=== PATIENT | female | born 1950 | race Caucasian/White ===

== ENCOUNTER → 2018-06-05 | Outpatient (CLI) | payer OTHER ==
[~2018-06-05] MED LIST: IOPAMIDOL (ISOVUE 370) 75 ML BTL IV ONE
== END ==
LOC: FIMAGING 11:43
PROVIDERS: ATTEND Family Medicine
DX: J34.9 Unspecified disorder of nose and nasal sinuses (principal); R60.9 Edema, unspecified
CPT/HCPCS: 70487; Q9967; 82565-PO

== ENCOUNTER 2018-06-06 12:43 | Emergency (ER) | payer OTHER ==
--- NOTE | 2018-06-06 13:14 | EDPHY ---
H & P Time Seen by Provider: 06/06/18 12:53 HPI/ROS: CHIEF COMPLAINT: Multiple complaints, word-finding difficulties HISTORY OF PRESENT ILLNESS: The patient is a 59-year-old female who presents emergency department multiple complaints. Her symptoms started last weekend. She thought she had cold-like symptoms. Since last Friday she developed swelling on the left side of her face. She was seen at urgent care and started on amoxicillin for possible sinusitis. Her symptoms worsened. She came back to Urgent Care. She had increased left facial swelling. A CT noncontrast study was ordered. This showed a fluid collection that was just medial to the root of the last molar at the upper plate that was 1.7 x 1.6 cm. Unfortunately , further cephalad, the region was obscured by beam hardening artifact. The patient was started on Augmentin. The patient was seen by an oral surgeon, Dr. Tammy Christopher last evening. There she had a Panorex. She was told that she did not have a dental abscess. She was told to follow up with a neurologist. Patient reports that she has been having word-finding difficulty. She has had a slight stuttering affect. She has also had increased tremors. The patient also adds that she has been having"nerve pain"all over body. This happened on both sides of her face, both feet and both legs. REVIEW OF SYSTEMS: 10 systems were reveiwed and are negative with the exception of the elements mentioned in the history of present illness. Past Medical/Surgical History: Includes hypothyroidism, chronic ear infections Past surgical history: Includes cochlear implant, hysterectomy, tonsillectomy Social history: Patient does not smoke Smoking Status: Never smoked Physical Exam: Vitals noted. 37.5, 182/107, 98, 16, 94% on room air GENERAL: No acute distress, alert. HEENT: Eyes normal to inspection, normal pharynx, no signs of dehydration. Patient has minimal swelling to left side of her face. There is no erythema or warmth. TMs are negative bilaterally NECK: Normal, supple. No bruit RESPIRATORY: Clear to auscultation bilaterally, no rales, rhonchi or wheezing. CVS: Regular rate and rhythm, no rubs, murmurs, or gallops. ABDOMEN: Soft, nontender, nondistended, no organomegaly. BACK: Normal to inspection, no CVA tenderness. SKIN: Normal color, no rash, warm, dry. No pallor. EXTREMITIES: No pedal edema, no calf tenderness, no Homans sign or cords, no joint swelling. NEURO/PSYCH: Higher functions: Alert and Oriented x3. Slightly stuttered speech. The patient seems have word-finding difficulty. The patient seems slightly slow of thought. Normal mood and affect. Cranial nerves: Normal as tested. Cerebellar: Normal as tested. Good finger to nose, good [id number], normal gait. Slight tremor. Peripheral exam: Normal motor exam. Normal sensation. Constitutional: Initial Vital Signs Temperature (C) 37.5 C 06/06/18 12:44 Heart Rate 98 06/06/18 12:44 Respiratory Rate 16 06/06/18 12:44 Blood Pressure 182/107 H 06/06/18 12:44 O2 Sat (%) 94 06/06/18 12:44 O2 Delivery Mode Room Air Allergies/Adverse Reactions: Sulfa (Sulfonamide Antibiotics) Allergy (Unknown, Verified 08/11/11 19:43) Home Medications: Medication Instructions Recorded Citalopram Hydrobromide [celeXA 10 08/07/11 MG] Hbp Med 08/07/11 Meclizine HCl [Meclizine HCl 25 mg 25 mg PO Q6-8PRN PRN #15 tab 08/07/11 (RX,OTC)] Thyroid gm MC 08/07/11 Albuterol [Proventil Inhaler HFA 2 puffs IH Q4PRN #1 mdi 08/11/11 (*)] Amoxicillin/Clavulanate Pot 875 mg PO BID #20 tab 08/11/11 [Augmentin 875 mg tab] Azithromycin [Zithromax tab 250 mg] 250 mg PO DAILY #6 tab 08/11/11 Medical Decision Making - Diagnostics Imaging Results: Imaging Impressions Head CTA 06/06/18 13:14 Impression: 1. Incompletely evaluated proximal aortic dilatation. There is no evidence for arch dissection. If there is concern for aneurysm recommend dedicated CT. 2. No flow-limiting stenosis in tortuous cervical vessels. 3. Persistent fluid collection in the left oral cavity described in detail yesterday. Note: All stenoses are calculated using NASCET Criteria. General information for patients regarding this examination can be found at [email or web address]. If you have questions or comments about this report, please contact me at (hospital) or [phone] (cell). 2. CT Angiogram and CT Venogram of the Brain, 14:19 Clinical Indications: aphasia, previous facial abscess, possible stroke, possible cerebral vein thrombosis Technique: CT angiography followed by CT venography of the brain was performed with the uneventful intravenous administration of 90 mL Isovue-370 contrast. Multiplanar reconstructions including 3D reconstructions performed of the arterial phase and venous phase and evaluated on [employer] workstation in order to better evaluate the [place] vessels and major draining veins of the brain. Images were manipulated by the radiologist at the computer workstation. Dose reduction techniques were utilized. Findings: CT Angiogram: Artifact from a right cochlear implant obscures the right posterior brain at the level of the temporal and occipital lobes. Major vessels of the [place] are adequately displayed, demonstrating no evidence of aneurysm, vascular malformation, flow-limiting stenosis, or occlusion. Bilateral cavernous internal carotid arteries and vertebrobasilar system demonstrate no evidence of flow-limiting stenosis, aneurysm, occlusion or dissection. The distal internal carotid arteries are widely patent as are the M1 M2 and middle cerebral trifurcations. The left A1 is larger than the right. The A2 and anterior cerebral arteries are normal. There is a small normal anterior communicating artery. There is an infundibulum at the basilar tip which feeds the right posterior cerebral artery. The left posterior cerebral artery has its origin from a large left posterior communicating artery and a tiny left P1 artery both superior cerebellar arteries, anterior cerebellar arteries and posterior inferior cerebellar arteries are patent. CT Venogram: The superior sagittal sinus, transverse sinuses and internal jugular veins are widely patent. The inferior sagittal sinus, straight sinus, internal cerebral veins and basilar veins of [place] are patent. Impression: Negative CTA and CTV of the brain. Results discussed with Dr. Bhandari at 1514 p.m. Neck CTA 06/06/18 13:15 Impression: 1. Incompletely evaluated proximal aortic dilatation. There is no evidence for arch dissection. If there is concern for aneurysm recommend dedicated CT. 2. No flow-limiting stenosis in tortuous cervical vessels. 3. Persistent fluid collection in the left oral cavity described in detail yesterday. Note: All stenoses are calculated using NASCET Criteria. General information for patients regarding this examination can be found at [email or web address]. If you have questions or comments about this report, please contact me at (hospital) or [phone] (cell). 2. CT Angiogram and CT Venogram of the Brain, 14:19 Clinical Indications: aphasia, previous facial abscess, possible stroke, possible cerebral vein thrombosis Technique: CT angiography followed by CT venography of the brain was performed with the uneventful intravenous administration of 90 mL Isovue-370 contrast. Multiplanar reconstructions including 3D reconstructions performed of the arterial phase and venous phase and evaluated on [employer] workstation in order to better evaluate the [place] vessels and major draining veins of the brain. Images were manipulated by the radiologist at the computer workstation. Dose reduction techniques were utilized. Findings: CT Angiogram: Artifact from a right cochlear implant obscures the right posterior brain at the level of the temporal and occipital lobes. Major vessels of the [place] are adequately displayed, demonstrating no evidence of aneurysm, vascular malformation, flow-limiting stenosis, or occlusion. Bilateral cavernous internal carotid arteries and vertebrobasilar system demonstrate no evidence of flow-limiting stenosis, aneurysm, occlusion or dissection. The distal internal carotid arteries are widely patent as are the M1 M2 and middle cerebral trifurcations. The left A1 is larger than the right. The A2 and anterior cerebral arteries are normal. There is a small normal anterior communicating artery. There is an infundibulum at the basilar tip which feeds the right posterior cerebral artery. The left posterior cerebral artery has its origin from a large left posterior communicating artery and a tiny left P1 artery both superior cerebellar arteries, anterior cerebellar arteries and posterior inferior cerebellar arteries are patent. CT Venogram: The superior sagittal sinus, transverse sinuses and internal jugular veins are widely patent. The inferior sagittal sinus, straight sinus, internal cerebral veins and basilar veins of N[place] are patent. Impression: Negative CTA and CTV of the brain. Results discussed with Dr. Bhandari at 1514 p.m. ED Course/Re-evaluation: In the emergency department I discussed possible etiologies with the patient. Her daughter was also present and confirm her history. I reviewed the CT imaging from 06/05/2018. The patient states that she has a cochlear implant is unable to undergo MRI imaging. I discussed the case with Dr. Hernán Calderon from Neurology. He recommended a CT angio of the head and neck. He also recommended CT venogram. I discussed this with Dr. Zhu from Radiology. I also spoke with the c t tech regarding the appropriate test. A CT angiogram of the head neck were ordered. The tech will add on the venogram. I discussed the plan with the patient and family. Patient's CBC was unremarkable. Chemistry was notable for slightly low sodium at 131. Patient's lactic acid was normal at 0.9. UA negative. CT angio head neck: Please refer the dictated report by Dr. Zhu. There is no acute intracranial process. No venous thrombosis. I discussed results with the patient. I answered all her questions. On recheck she was stable. Paged Dr. Calderon. 16 10: Dr. Calderon is re-paged. 0106: I discussed case with Dr. Calderon. Reviewed the imaging studies. This time he felt the patient could be discharged. Patient will continue to take her Augmentin. She will take the entire course of antibiotics. She will follow up with Dr. Calderon on Friday. She will take an aspirin daily. She is given warnings prior to leaving. She will return with worsening symptoms. I answered all her questions and explained the plan. Not feel the patient benefits from hospital admission at this time. Differential Diagnosis: My differential includes but not limited to ischemic CVA, hemorrhagic CVA, dissection, aneurysm, sinus thrombosis, abscess, bacteremia, sepsis - Data Points Laboratory Results: Laboratory Results 06/06/18 13:39 06/06/18 13:39 06/06/18 06/06/18 06/06/18 13:44 13:39 13:39 WBC RBC Hgb Hct MCV MCH MCHC RDW Plt Count MPV Neut % (Auto) Lymph % (Auto) [place] % (Auto) Eos % (Auto) Baso % (Auto) Nucleat RBC Rel Count Absolute Neuts (auto) Absolute Lymphs (auto) Absolute Monos (auto) Absolute Eos (auto) Absolute Basos (auto) Absolute Nucleated RBC Immature Gran % Immature Gran # PT INR APTT VBG Lactic Acid 0.9 mmol/L mmol/L (0.7-2.1) Sodium 131 mEq/L L mEq/L (135-145) Potassium 4.4 mEq/L mEq/L (3.5-5.2) Chloride 100 mEq/L mEq/L (97-110) Carbon Dioxide 22 mEq/l mEq/l (22-31) Anion Gap 9 mEq/L mEq/L (6-14) BUN 16 mg/dL mg/dL (7-23) Creatinine 0.7 mg/dL mg/dL (0.6-1.0) Estimated GFR > 60 Glucose 94 mg/dL mg/dL (70-100) Calcium 9.6 mg/dL mg/dL (8.5-10.4) Total Bilirubin 0.8 mg/dL mg/dL (0.1-1.4) Urine Color JOSUE Urine Appearance HAZY Urine pH 5.0 (5.0-7.5) Ur Specific [place] 1.020 (1.002-1.030) Urine Protein NEGATIVE (NEGATIVE) Urine Ketones TRACE H (NEGATIVE) Urine Blood NEGATIVE (NEGATIVE) Urine Nitrate NEGATIVE (NEGATIVE) Urine Bilirubin NEGATIVE (NEGATIVE) Urine Urobilinogen NEGATIVE EU EU (0.2-1.0) Ur Leukocyte Esterase NEGATIVE (NEGATIVE) Urine Glucose NEGATIVE (NEGATIVE) 06/06/18 06/06/18 13:39 13:39 WBC 7.81 10^3/uL 10^3/uL (3.80-9.50) RBC 4.56 10^6/uL 10^6/uL (4.18-5.33) Hgb 13.9 g/dL g/dL (12.6-16.3) Hct 38.8 % % (38.0-47.0) MCV 85.1 fL fL (81.5-99.8) MCH 30.5 pg pg (27.9-34.1) MCHC 35.8 g/dL g/dL (32.4-36.7) RDW 12.4 % % (11.5-15.2) Plt Count 262 10^3/uL 10^3/uL (150-400) MPV 9.2 fL fL (8.7-11.7) Neut % (Auto) 68.5 % % (39.3-74.2) Lymph % (Auto) 18.8 % % (15.0-45.0) [place] % (Auto) 12.3 % % (4.5-13.0) Eos % (Auto) 0.0 % L % (0.6-7.6) Baso % (Auto) 0.1 % L % (0.3-1.7) Nucleat RBC Rel Count 0.0 % % (0.0-0.2) Absolute Neuts (auto) 5.35 10^3/uL 10^3/uL (1.70-6.50) Absolute Lymphs (auto) 1.47 10^3/uL 10^3/uL (1.00-3.00) Absolute Monos (auto) 0.96 10^3/uL H 10^3/uL (0.30-0.80) Absolute Eos (auto) 0.00 10^3/uL L 10^3/uL (0.03-0.40) Absolute Basos (auto) 0.01 10^3/uL L 10^3/uL (0.02-0.10) Absolute Nucleated RBC 0.00 10^3/uL 10^3/uL (0-0.01) Immature Gran % 0.3 % % (0.0-1.1) Immature Gran # 0.02 10^3/uL 10^3/uL (0.00-0.10) PT 13.4 SEC SEC (12.0-15.0) INR 1.00 (0.83-1.16) APTT 34.2 SEC SEC (23.0-38.0) VBG Lactic Acid Sodium Potassium Chloride Carbon Dioxide Anion Gap BUN Creatinine Estimated GFR Glucose Calcium Total Bilirubin Urine Color Urine Appearance Urine pH Ur Specific [place] Urine Protein Urine Ketones Urine Blood Urine Nitrate Urine Bilirubin Urine Urobilinogen Ur Leukocyte Esterase Urine Glucose Medications Given: Discontinued Medications Sodium Chloride (Ns) 500 mls @ 0 mls/hr IV ONCE ONE PRN Reason: Wide Open Stop: 06/06/18 13:24 Last Admin: 06/06/18 15:01 Dose: 500 mls Departure - Departure Disposition: Home, Routine, Self-Care Clinical Impression: Aphasia Condition: Good Instructions: Aphasia (DC) Additional Instructions: Take your entire course of antibiotics. Return with increasing headache, word- finding difficulty, confusion or any other concerns. Call Dr. Calderon on Friday morning to make the next available appointment. Referrals: CRISELDA BRUCE [Other] - As per Instructions Hernán Calderon MD [Medical Doctor] - 2-3 days without fail
[2018-06-06] MEDS ORDERED: NS 500 ML IV ONE (13:23)
[2018-06-06 13:52] LABS: PLATELET COUNT 262 10^3/uL (150-400)
[2018-06-06 14:06] LABS: PROTIME(PATIENT) 13.4 SEC (12.0-15.0)
[2018-06-06] MEDS ORDERED: IOPAMIDOL (ISOVUE 370) 100 ML BTL IV ONE (14:10)
[2018-06-06 16:59] VITALS: BP 159/95
== END 2018-06-06 16:58 | disposition home or self-care (01) ==
DX: R47.01 Aphasia (principal); E03.9 Hypothyroidism, unspecified
CPT/HCPCS: 70496; 70498; 99285; Q9967

== ENCOUNTER → 2018-06-19 | Outpatient (CLI) | payer OTHER | LOC: FIMAGING 10:15 | PROVIDERS: ATTEND Psychiatry & Neurology Neurology | DX: I63.9 Cerebral infarction, unspecified (principal) ==